=== PATIENT | male | born 1935 | race Caucasian/White ===

== ENCOUNTER → 2017-12-15 | Outpatient (CLI) | payer MEDICARE, OTHER ==
[~2017-12-15] MED LIST: ATOR20TA22 PO; BISA-229 PO; CAR6.25 PO; LINA145C PO; LISI20TA29 PO; POLY17PO25 PO; PSYL660P5; TAMS0.4C70 PO; UBID100C48 PO
[2017-12-15 10:14] LABS: PLATELET COUNT, AUTOMATED 241 K/uL (150-450)
[2017-12-15 10:25] LABS: LDL CHOLESTEROL 79 mg/dl
--- NOTE | 2017-12-15 18:05 | RADIOLOGY IMAGING REPORT ---
FACILITY: [facility] [place] PATIENT NAME: Elmer Yates : 1935 MR: [id number] V: [id number] EXAM DATE: ORDERING PHYSICIAN: DEBI SWENSON TECHNOLOGIST: Location: [facility] Patient: Elmer Yates : 1935 Visit/Account:[id number] Date of Sevice: 12/15/2017 Abdominal series with single view of the chest: 12/15/2017 10:03 AM HISTORY: abd pain, constipation COMPARISON:none. FINDINGS: Mild to moderate amount of fecal material in the colon. No distal impaction. Small bowel is not distended. No significant air-fluid levels. No free air. Right upper quadrant cholecystect noah clips. 11 mm calcification projects over the lower left kidney. 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 Bones are osteopenic. Normal heart size. Aorta is atherosclerotic and tortuous. Reticular prominence diffusely the lungs which is probably chronic/senescent. No focal consolidation. Pleural spaces are clear. Prior righ t shoulder surgery. IMPRESSION: 1. 1. Pnbn-ta-[place] amount fecal material in the colon with an otherwise nonspecific nonobstructi ve bowel gas pattern. 2. 11 mm lower pole stone in the left kidney. 3. No acute appearing cardiopulmonary finding. Report Dictated By: Jose Guadalupe Busby MD at 12/15/2017 6:00 PM Report E-Signed By: Jose Guadalupe Busby MD at 12/15/2017 6:02 PM WSN:[id number]
== END ==
LOC: LAB 09:40
PROVIDERS: ATTEND Internal Medicine
DX: Z12.5 Encounter for screening for malignant neoplasm of prostate (principal); I25.10 Atherosclerotic heart disease of native coronary artery without angina pectoris; K56.41 Fecal impaction; N20.0 Calculus of kidney; N40.0 Benign prostatic hyperplasia without lower urinary tract symptoms; R10.9 Unspecified abdominal pain; I10 Essential (primary) hypertension; K59.00 Constipation, unspecified; E78.5 Hyperlipidemia, unspecified
CPT/HCPCS: 36415; 74019; 81001; 82150; 83690; 84443; 85025; G0103; 82040; 82247; 82310; 82374; 82435; 82465; 82565; 82947; 83718; 84075; 84132; 84153; 84155; 84295; 84450; 84460; 84478; 84520

== ENCOUNTER → 2018-08-20 | Outpatient (CLI) | payer MEDICARE, OTHER ==
[~2018-08-20] MED LIST changes: +CARV12.578 PO; +CARV25TA78 PO
[2018-08-20 10:59] LABS: PLATELET COUNT, AUTOMATED 185 K/uL (150-450)
[2018-08-20 11:12] LABS: LDL CHOLESTEROL 80 mg/dl
== END ==
LOC: LAB 10:33
PROVIDERS: ATTEND Internal Medicine
DX: I35.0 Nonrheumatic aortic (valve) stenosis (principal); N43.0 Encysted hydrocele; E78.5 Hyperlipidemia, unspecified; I10 Essential (primary) hypertension
CPT/HCPCS: 36415; 81001; 84443; 85025; G0103; 82040; 82247; 82310; 82374; 82435; 82465; 82565; 82947; 83718; 84075; 84132; 84153; 84155; 84295; 84450; 84460; 84478; 84520